=== PATIENT | female | born 1990 | race Caucasian/White ===

== ENCOUNTER 2021-09-07 17:23 | Emergency (ER) | payer MEDICAID, OTHER ==
[~2021-09-07] VITALS: Ht 157.5 cm; Wt 92.1 kg
[~2021-09-07 17:23] MED LIST: FERR325E14 PO; FOLI1TAB19 PO; IBUP-974 PO; PREN-385 PO
[2021-09-07 17:29] VITALS: BP 128/77
--- NOTE | 2021-09-07 17:34 | NUR ---
Pt ambulated to bed 11 with steady/even gait.
--- NOTE | 2021-09-07 17:52 | NUR ---
31/F BIB SELF WITH C/O LOWER BACK PAIN. PATIENT STATES SHE WAS FOLDING LAUNDRY AND WHEN SHE BENT OVER SHE FELT A SHARP LOWER BACK PAIN, DENIES RECENT INJURY OR TRAUMA. REPORTS 10/10 CONSTANT SHARP PAIN THAT WORSENS WITH WALKING OR MOVEMENT, DENIES FEVER, CHILLS, CP, SOB OR URINARY SYMPTOMS.
[2021-09-07] MEDS ORDERED: diazePAM 5 MG TAB PO ONE (18:00)
[2021-09-07] MEDS ORDERED: fentaNYL citrate 0.05 MG/ML VIAL NS ONE (18:00)
[2021-09-07] MEDS ORDERED: KETOROLAC 30 MG/ML VIAL IM ONE (18:00)
--- NOTE | 2021-09-07 19:29 | NUR ---
Pt report given to ADITYA DUONG. Transfer of care at this time.
--- NOTE | 2021-09-07 19:30 | NUR ---
ASSUMED CARE OF PT, NO S/S OF ACUTE DISTRESS. PT HAS EYES CLOSED AROUSABLE. VSS. WILL CONTINUE TO OBSERVE
[2021-09-07] MEDS ORDERED: MORPHINE SULFATE 4 MG/ML SYR IM ONE (21:00)
--- NOTE | 2021-09-07 22:28 | NUR ---
LAB CALLED; URINE WAS IN FRIDGE, UA PENDING
[2021-09-07 22:29] LABS: APPEARANCE,URINE CLEAR (CLEAR); BILIRUBIN,URINE NEGATIVE (NEGATIVE); BLOOD, URINE 1+ (NEGATIVE); COLOR,URINE YELLOW (YELLOW); LEUKOCYTE ESTERASE ,URINE NEGATIVE (NEGATIVE); NITRITE, URINE NEGATIVE (NEGATIVE); UGLUCOSE NEGATIVE (NEGATIVE)
[2021-09-07 22:35] LABS: RBC,URINE 0-5 /HPF (0-5); WBC,URINE 0-5 /HPF (0-5)
[2021-09-07] MEDS ORDERED: NAPR-54 PO (23:10)
[2021-09-07] MEDS ORDERED: ACET-8386 PO (23:10)
[2021-09-07] MEDS ORDERED: LID5T TP (23:10)
[2021-09-08 00:15] VITALS: BP 125/65
--- NOTE | 2021-09-08 00:16 | NUR ---
Patient discharged with v/s stable. Written and verbal after care instructions given and explained. Patient alert, oriented and verbalized understanding of instructions. Ambulatory with steady gait. All questions addressed prior to discharge. ID band removed. Patient advised to follow up with PMD. Rx of LIDODERM PATCH, NAPROXEN, NORCO given. Patient educated on indication of medication including possible reaction and side effects. Opportunity to ask questions provided and answered.
== END 2021-09-08 00:16 | disposition home or self-care (01) ==
LOC: MED 17:23
DX: M54.50 Low back pain, unspecified (principal)
CPT/HCPCS: 74176; 81001; 81025; 96372; 99284; J1885; J2270; J3010

== ENCOUNTER 2023-02-12 12:49 | Emergency (ER) | payer MEDICAID ==
[~2023-02-12] VITALS: Ht 152.4 cm; Wt 94.3 kg
[~2023-02-12 12:49] MED LIST changes: +ACET-8905 PO; +LID5T TP; +NAPR-54 PO
[2023-02-12 12:54] VITALS: BP 151/106
[2023-02-12] MEDS ORDERED: predniSONE 20 MG TAB PO ONE (13:15)
[2023-02-12] MEDS ORDERED: ACYC400T14 PO (13:28)
[2023-02-12] MEDS ORDERED: PRED20TA5 PO (13:28)
[2023-02-12] MEDS ORDERED: DEXT15DR6 OP (13:30)
[2023-02-12 14:03] VITALS: BP 151/106
== END 2023-02-12 14:03 | disposition home or self-care (01) ==
LOC: MED 12:49
DX: G51.0 Bell's palsy (principal); E11.9 Type 2 diabetes mellitus without complications; Z79.4 Long term (current) use of insulin; Z79.899 Other long term (current) drug therapy
CPT/HCPCS: 99283; J7512